=== PATIENT | female | born 1960 | race Caucasian/White ===

== ENCOUNTER → 2023-05-07 08:01 | Outpatient (CLI) | payer OTHER, SELFPAY ==
[2023-05-07 10:14] LABS: Add Manual Diff / Slide Review NO; Basophils Absolute Auto 100 /uL (0-100); Basophils Percent Auto 0.9 % (0-2); Eosinophils Absolute Auto 100 /uL (0-450); Hematocrit 45.4 % (36-46); Hemoglobin 15.2 g/dL (12.0-16.0); Lymphocytes Absolute Auto 1900 /uL (1100-4500); Lymphocytes Percent Auto 31.6 % (25-40); Mean Corpuscular HGB Conc 33.4 % (30-36); Mean Corpuscular Hemoglobin 29.9 PG (26-34); Mean Corpuscular Volume 89.6 fL (80-100); Monocytes Absolute Auto 400 /uL (0-900); Monocytes Percent Auto 7.2 % (3-14); Neutrophils Absolute Auto 3500 /uL (1500-7000); Neutrophils Percent Auto 58.3 % (50-75); Platelet Count 217 X10^3/uL (150-400); Red Blood Cell Count 5.07 X10^6/uL (4.0-5.2); Red Cell Distribution Width 13.8 % (11.6-14.8)
[2023-05-07 10:30] LABS: Hemoglobin A1C% w Est Avg Glu 5.6 % (4.0-6.0)
[2023-05-07 10:40] LABS: Alanine Aminotransferase 155 IU/L (<35); Albumin 4.1 g/dL (3.5-5.0); Albumin Globulin Ratio 1.5 (1.0-2.8); Alkaline Phosphatase 205 U/L (38-126); Aspartate Aminotransferase 57 IU/L (14-36); BUN Creatinine Ratio 25.5 (6-22); Bilirubin Total 0.6 mg/dL (0.2-1.3); Blood Urea Nitrogen 14 mg/dL (7-17); Calcium 9.9 mg/dL (8.4-10.2); Carbon Dioxide 29 mmol/L (22-32); Chloride 101 mmol/L (98-107); Cholesterol 308 mg/dL (140-199); Estimated Glomerular Filt Rate > 60 mL/min (>60); Globulin 2.7 g/dL (1.7-4.1); Glucose 84 mg/dL (80-110); HDL Cholesterol 80 mg/dL (40-60); HEMOLYSIS < 15 (0-50); LDL Cholesterol Calculated 193 mg/dL (<100); Potassium 4.4 mmol/L (3.4-5.1); Sodium 137 mmol/L (137-145); Total Protein 6.8 g/dL (6.3-8.2); Triglycerides 175 mg/dL (35-150)
[2023-05-07 10:52] LABS: Free T3, Triiodothyronine Free 4.98 pg/mL (2.77-5.27); Free T4, Direct Thyroxine 0.95 ng/dL (0.78-2.19)
[2023-05-07 11:05] LABS: Thyroid Stimulating Hormone 1.75 uIU/mL (0.47-4.68)
[2023-05-07 12:11] LABS: Creatinine Urine Random 24.6 mg/dL
[2023-05-07 12:16] LABS: Microalbumin Urine Random < 0.6 mg/dL (0-1.6)
[2023-05-08 10:22] LABS: Fecal Immunochemical Test Negative (Negative)
== END ==
PROVIDERS: PCP Nurse Practitioner; Referring Provider Family Medicine; Visit Provider Family Medicine
DX: I10 Essential (primary) hypertension (principal); F41.9 Anxiety disorder, unspecified; R73.9 Hyperglycemia, unspecified; Z12.11 Encounter for screening for malignant neoplasm of colon
CPT/HCPCS: 36415; 80053; 80061; 82043; 82274; 82570; 83036; 84439; 84443; 84481; 85025

== ENCOUNTER 2024-10-09 16:22 | Emergency (ER) | payer OTHER, SELFPAY ==
[2024-10-09] VITALS (9 sets, daily range): BP systolic 154–190; BP diastolic 77–112; PULSE 73–99; RESP 16–20; TEMP 36.1; O2SAT 95–98; BMI 23.8
--- NOTE | 2024-10-09 16:46 | DI.RAD.S_ITS ---
PROCEDURE: XR CHEST 1V INDICATIONS: chest pain TECHNIQUE: One view of the chest was acquired. COMPARISON: None. FINDINGS: Surgical changes and devices: None. Lungs and pleura: Lungs are clear. No pleural effusions or pneumothorax. Mediastinum: Mediastinal contours appear normal. Heart size is normal. Bones and chest wall: No suspicious bony lesions. Overlying soft tissues appear unremarkable. IMPRESSION: No acute cardiopulmonary abnormality is seen. Dictated by: Ok Perez M.D. on 10/09/2024 at 17:24 Approved by: Ok Perez M.D. on 10/09/2024 at 17:25
--- NOTE | 2024-10-09 16:52 | EKG_ITS ---
[address] [address] Test Date: 2024-10-09 Pat Name: Tanisha Michel Department: Room: Gender: Female Transitional Living Specialist: ANDRE BOSTON : 1960 Requested By: Order Number: [id number] Reading MD: Chu Juarez MD Measurements Intervals [place] Rate: 86 P: 53 [place]: 154 QRS: -8 QRSD: 78 T: 33 QT: 376 QTc: 449 Interpretive Statements Normal sinus rhythm Electronically Signed On 10-09-2024 16:57:34 PDT by Chu Juarez MD
[2024-10-09 17:19] LABS: Prothrombin Time 11.5 SECONDS (9.4-12.5)
[2024-10-09 17:22] LABS: PTT Partial Thromboplastin Tim 33 SECONDS (25.1-36.5)
[2024-10-09 17:24] LABS: Alanine Aminotransferase 22 IU/L (<35); Albumin 4.6 g/dL (3.5-5.0); Albumin Globulin Ratio 1.4 (1.0-2.8); Alkaline Phosphatase 117 U/L (38-126); Aspartate Aminotransferase 28 IU/L (14-36); BUN Creatinine Ratio 23.5 (6-22); Bilirubin Total 0.8 mg/dL (0.2-1.3); Blood Urea Nitrogen 16 mg/dL (7-17); Carbon Dioxide 24 mmol/L (22-32); Chloride 106 mmol/L (98-107); Creatine Kinase 82 U/L (30-135); Estimated Glomerular Filt Rate > 60 mL/min (>60); Globulin 3.2 g/dL (1.7-4.1); Glucose 113 mg/dL (80-110); HEMOLYSIS 32 (0-50); Lipase 139 U/L (23-300); Magnesium 2.4 mg/dL (1.6-2.3); Potassium 3.9 mmol/L (3.4-5.1); Sodium 139 mmol/L (137-145); Total Protein 7.8 g/dL (6.3-8.2)
[2024-10-09 17:33] LABS: Add Manual Diff / Slide Review NO; Basophils Absolute Auto 100 /uL (0-100); Basophils Percent Auto 1.2 % (0-2); Eosinophils Absolute Auto 100 /uL (0-450); Eosinophils Percent Auto 0.6 % (2-4); Hematocrit 46.4 % (36-46); Hemoglobin 15.5 g/dL (12.0-16.0); Lymphocytes Absolute Auto 2500 /uL (1100-4500); Lymphocytes Percent Auto 22.6 % (25-40); Mean Corpuscular HGB Conc 33.4 % (30-36); Mean Corpuscular Hemoglobin 29.5 PG (26-34); Mean Corpuscular Volume 88.2 fL (80-100); Monocytes Absolute Auto 800 /uL (0-900); Monocytes Percent Auto 7.1 % (3-14); Neutrophils Absolute Auto 7500 /uL (1500-7000); Neutrophils Percent Auto 68.5 % (50-75); Platelet Count 249 X10^3/uL (150-400); Red Blood Cell Count 5.26 X10^6/uL (4.0-5.2); Red Cell Distribution Width 13.8 % (11.6-14.8)
[2024-10-09 17:35] LABS: NT-proBNP (BNP-Adult 18+) 21 pg/mL (<125); Troponin I < 0.012 ng/mL (0.01-0.034)
--- NOTE | 2024-10-09 19:12 | EKG_ITS ---
[address] [address] Test Date: 2024-10-09 Pat Name: Tanisha Michel Department: Room: Gender: Female Coat Checker: CYRUS : 1960 Requested By: Order Number: [id number] Reading MD: Chu Juarez MD Measurements Intervals [place] Rate: 90 P: 42 [place]: 160 QRS: -14 QRSD: 78 T: 14 QT: 364 QTc: 445 Interpretive Statements Normal sinus rhythm Electronically Signed On 10-09-2024 20:02:13 PDT by Chu Juarez MD
[2024-10-09 19:38] LABS: Creatine Kinase 66 U/L (30-135)
[2024-10-09 19:50] LABS: Troponin I < 0.012 ng/mL (0.01-0.034)
--- NOTE | 2024-10-09 23:41 | ED_ITS ---
HPI - Chest Pain General Chief Complaint: Chest Pain Stated Complaint: heart palpitations, squeezing sensation Time Seen by Provider: 10/09/24 23:32 History of Present Illness HPI narrative: Patient is a 64-year-old female on hormone replacement therapy progesterone for insomnia presenting today with chest discomfort. She reports that she was sitting in the recliner today she felt some squeezing it is palpitations. No radiation of pain. Now feeling better after being in the emergency department for about 7 hours. She reports that she has not been sleeping for about a week. She was previously put on progesterone to help with insomnia. She says it was working however it suddenly quit working and she has not been sleeping. She is decrease in appetite. Related Data Previous Rx's Medication Instructions Recorded progesterone micronized 100 mg 100 mg PO QPM #90 caps 01/30/24 capsule Allergies Allergy/AdvReac Type Severity Reaction Status Date / Time No Known Drug Allergies Allergy Unverified 01/30/24 10:52 Patient History Medical History Elevated LFTs Insomnia Hyperlipidemia Depression Acne Allergies Anxiety Mumps Chicken pox Anemia (~1986) Ovarian cyst Infertility Heavy menstrual period Endometriosis Abnormal Pap smear of cervix Hypertension (~2016) Surgical History History of hysterectomy for benign disease Anesthesia History of hysterectomy (~2012) Family History Father Hypertension Hyperlipidemia Mother Ovarian cancer Atrial fibrillation Hypertension Hyperlipidemia Anxiety Osteoporosis Rheumatoid arthritis Brother Hyperlipidemia Hypertension Sister Breast cancer Rheumatoid arthritis Family/Other Fatty liver Intestinal disorder Social History Smoking Status: Never smoker Smoking Status: Never smoker Exam Initial Vital Signs Initial Vital Signs: Vital Signs Temperature 97.0 F L 10/09/24 16:47 Pulse Rate 99 H 10/09/24 16:47 Respiratory Rate 18 10/09/24 16:47 Blood Pressure 190/112 H 10/09/24 16:47 Pulse Oximetry 95 10/09/24 16:47 Oxygen Delivery Method Room Air 10/09/24 16:47 GENERAL: Alert well-appearing 64-year-old female HEENT: Head atraumatic,EOMI, pupils reactive, face symmetric, moist mucous membranes CARDIOVASCULAR: Regular rate and rhythm without murmurs, rubs or gallops. RESPIRATORY: Breath sounds equal bilaterally, no wheezes rales or rhonchi. ABDOMEN: Soft, nontender. Normoactive bowel sounds all 4 quadrants. No guarding or rebound. EXTREMITIES: Normal range of motion, no clubbing or edema. Neurovascularly intact NEUROLOGICAL: Alert and oriented x4.Normal gait and speech. Cranial nerves II through XII grossly intact. SKIN: Warm, dry, no laceration, no petechiae, no rashes or lesions. Scores HEART Score Heart Score history: Slightly Suspicious Heart Score EKG: Normal Heart Score Age: 45-64 years old Heart Score risk factors: No known risk factors Heart Score troponin: < or = to normal limit Heart Score Total: 1 Course Orders Ordered: Discontinued Medications Aspirin (Aspirin 81 Mg Chew Tab) 324 mg PO NOW ONE Stop: 10/09/24 16:47 Vital Signs Vital signs: Vital Signs - 8 hr 10/09/24 21:18 10/09/24 21:30 10/09/24 22:00 Pulse Rate 81 86 79 Respiratory Rate 20 16 16 Blood Pressure 169/91 H 161/77 H 158/83 H Pulse Oximetry 98 98 97 Oxygen Delivery Method Room Air Room Air 10/09/24 22:30 10/09/24 22:50 10/09/24 23:00 Pulse Rate 81 80 73 Respiratory Rate 17 16 17 Blood Pressure 155/81 H 154/81 H 155/80 H Pulse Oximetry 97 96 95 Oxygen Delivery Method Room Air 10/09/24 23:30 Pulse Rate 75 Respiratory Rate 16 Blood Pressure 157/83 H Pulse Oximetry 97 Oxygen Delivery Method MDM - Chest Pain Lab Data 10/09/24 16:59 10/09/24 16:59 Labs: Lab Results 10/09/24 10/09/24 Range/Units 16:59 19:18 WBC 11.0 (4.5-11.0) X10^3/uL RBC 5.26 H (4.0-5.2) X10^6/uL Hgb 15.5 (12.0-16.0) g/dL Hct 46.4 H (36-46) % MCV 88.2 (80-100) fL MCH 29.5 (26-34) PG MCHC 33.4 (30-36) % RDW 13.8 (11.6-14.8) % Plt Count 249 (150-400) X10^3/uL Neut % (Auto) 68.5 (50-75) % Lymph % (Auto) 22.6 L (25-40) % Williamson % (Auto) 7.1 (3-14) % Eos % (Auto) 0.6 L (2-4) % Baso % (Auto) 1.2 (0-2) % Neut # (Auto) 7500 H (5320-1686) /uL Lymph # (Auto) 2500 (5632-3479) /uL Williamson # (Auto) 800 (0-900) /uL Eos # (Auto) 100 (0-450) /uL Baso # (Auto) 100 (0-100) /uL PT 11.5 (9.4-12.5) SECONDS INR 1.0 (0.9-1.3) APTT 33 (25.1-36.5) SECONDS Sodium 139 (137-145) mmol/L Potassium 3.9 (3.4-5.1) mmol/L Chloride 106 (98-107) mmol/L Carbon Dioxide 24 (22-32) mmol/L BUN 16 (7-17) mg/dL Creatinine 0.68 (0.52-1.04) mg/dL Estimated GFR > 60 (>60) mL/min BUN/Creatinine Ratio 23.5 H (6-22) Glucose 113 H (80-110) mg/dL Calcium 10.0 (8.4-10.2) mg/dL Magnesium 2.4 H (1.6-2.3) mg/dL Total Bilirubin 0.8 (0.2-1.3) mg/dL AST 28 (14-36) IU/L ALT 22 (<35) IU/L Alkaline Phosphatase 117 (38-126) U/L Total Creatine Kinase 82 66 (30-135) U/L Troponin I < 0.012 < 0.012 (0.01-0.034) ng/mL NT-Pro-B Natriuret Pep 21 (<125) pg/mL Total Protein 7.8 (6.3-8.2) g/dL Albumin 4.6 (3.5-5.0) g/dL Globulin 3.2 (1.7-4.1) g/dL Albumin/Globulin Ratio 1.4 (1.0-2.8) Lipase 139 (23-300) U/L Imaging Data Chest x-ray: Radiologist's Impression: PROCEDURE: XR CHEST 1V INDICATIONS: chest pain TECHNIQUE: One view of the chest was acquired. COMPARISON: None. FINDINGS: Surgical changes and devices: None. Lungs and pleura: Lungs are clear. No pleural effusions or pneumothorax. Mediastinum: Mediastinal contours appear normal. Heart size is normal. Bones and chest wall: No suspicious bony lesions. Overlying soft tissues appear unremarkable. IMPRESSION: No acute cardiopulmonary abnormality is seen. Dictated by: Ok Perez M.D. on 10/09/2024 at 17:24 ECG Data Attestation: I personally reviewed and interpreted this ECG as follows: Prior ECG tracings: available for review Interpretation: EKGs 1. Normal sinus rhythm rate 86 [place] interval 154 QRS [address] changes EKGs 2. Sinus rhythm rate 90 no ischemia MDM Narrative Medical decision making narrative: Patient 64-year-old female currently on HRT presenting to day with insomnia and chest discomfort. Chest pain happened at rest she was having really more palpitations not dizzy or lightheaded no evidence syncope. She did have some sort of squeezing episode as well. She has no known coronary artery disease. She has no shortness of breath. Heart score is 1 Blood work has been reviewed No leukocytosis no anemia Electrolytes stable Creatinine within normal limits Troponin negative x2 Chest x-ray reviewed negative At this time patient really suffering from insomnia. Reports it progesterone was previously helping her. I recommend that she go up to 200 mg over progesterone to see if it helps her sleep. She has an appointment with primary care next week. Also consider estrogen patch for full HRT treatment. She was low risk heart score do not suspect ACS at this time. I suspect more palpitations. Discharge Plan Departure Patient Disposition: Home Clinical Impression: Atypical chest pain Instructions: DI for Atypical Chest Pain Activity Restrictions/Additional Instructions: *You have been diagnosed with atypical chest pain *What to do: At this time I think some of your symptoms are related to insomnia. Please discuss with provider if you should need further cardiac workup. Workup in the emergency department overall reassuring *Continue to take medications as directed May increase progesterone to 200 mg at night May add melatonin 5 mg as needed *Follow up with your primary care provider in 2-3 days or call [phone] *Return to ER if you should have increasing chest pain palpitations dizziness lightheadedness or any new, worsening or concerning symptoms Prescriptions: No Action progesterone micronized 100 mg capsule 100 mg PO QPM Qty: 90 3RF Rx Instructions: Take 1 cap at bedtime daily for insomnia Referrals: Lisa Vidal ARNP [Primary Care Provider] - Stand Alone Forms: Patient Portal/API/Survey
== END 2024-10-10 00:03 | disposition home or self-care (01) ==
PROVIDERS: Emergency Medicine; Emergency Provider Emergency Medicine; PCP Nurse Practitioner
DX: R07.89 Other chest pain (principal); R00.2 Palpitations
CPT/HCPCS: 36415; 71045; 80053; 82550; 83690; 83735; 83880; 84484; 85025; 85610; 85730; 93005; 93010; 99283; 99284

== ENCOUNTER 2024-10-13 09:08 | Emergency (ER) | payer OTHER, SELFPAY ==
[2024-10-13 09:20] VITALS: BP 171/86; PULSE 96; RESP 18; TEMP 36.4; O2SAT 96; BMI 23.8
--- NOTE | 2024-10-13 09:34 | PC.NURSE ---
Pt calm and cooperative with cares. Denies pain. Discussed plan of care, understands.
--- NOTE | 2024-10-13 11:08 | ED.PSYCH ---
HPI - Psych General Chief Complaint: Psychiatric Symptoms Stated Complaint: Can't sleep , fearful Time Seen by Provider: 10/13/24 09:46 Source: patient, RN notes reviewed and old records reviewed Mode of arrival: Ambulatory Limitations: no limitations History of Present Illness HPI Narrative: 64-year-old female presents with concern about insomnia for several weeks. Patient has a history of chronic insomnia states a year ago had an episode of psychosis with a suicide attempt after an extended period of severe insomnia. Patient is starting to being having issues again is very concerned that she might end up in the same situation. States she does not feel particularly anxious, states she was not have any thoughts of harming herself no hallucinations she does not feel like she was developing any psychosis at this time but wants to be preemptive and preventing that. She was seen here last week they increased her progesterone as she found that helpful in the past. Progesterone only current medication. She states she was at [facility] was hospitalized inpatient psych for over a week was discharged home on multiple medications but does not recall all of them. She was tried trazodone in the past without much help, she states she had Ambien but seemed to worsen hallucinations when she was hospitalized. Related Data Previous Rx's Medication Instructions Recorded progesterone micronized 100 mg 100 mg PO QPM #90 caps 10/10/24 capsule lorazepam 1 mg tablet (Ativan) 1 mg PO BEDTIME PRN insomnia #5 10/13/24 tabs Allergies Allergy/AdvReac Type Severity Reaction Status Date / Time No Known Drug Allergies Allergy Unverified 01/30/24 10:52 Review of Systems Review of Systems ROS Unobtainable: All systems reviewed & are unremarkable except as noted in HPI and below Patient History Medical History Elevated LFTs Insomnia Hyperlipidemia Depression Acne Allergies Anxiety Mumps Chicken pox Anemia (~1986) Ovarian cyst Infertility Heavy menstrual period Endometriosis Abnormal Pap smear of cervix Hypertension (~2016) Surgical History History of hysterectomy for benign disease Anesthesia History of hysterectomy (~2012) Family History Father Hypertension Hyperlipidemia Mother Ovarian cancer Atrial fibrillation Hypertension Hyperlipidemia Anxiety Osteoporosis Rheumatoid arthritis Brother Hyperlipidemia Hypertension Sister Breast cancer Rheumatoid arthritis Family/Other Fatty liver Intestinal disorder Social History Smoking Status: Never smoker Smoking Status: Never smoker Exam Narrative Exam Narrative: GENERAL: Alert and oriented x three, mild distress HEENT: Head normocephalic, atraumatic, EOMI, pupils reactive, face symmetric, moist mucous membranes NECK: Supple, full range of motion CARDIOVASCULAR: Regular rate and rhythm without murmurs, rubs or gallops. RESPIRATORY: Breath sounds equal bilaterally, no wheezes rales or rhonchi. ABDOMEN: Soft, nontender. Normoactive bowel sounds all 4 quadrants. No guarding or rebound, rigidity, no mass : No CVA tenderness EXTREMITIES: Normal range of motion, no clubbing or edema. Neurovascularly intact NEUROLOGICAL: Cranial nerves II through XII grossly intact. Moving all extremities SKIN: Warm, dry, no petechiae, no rashes or lesions. PSYCH: insomnia, no hallucinations, no SI/HI, denies any thoughts of harming herself or others. Initial Vital Signs Initial Vital Signs: Vital Signs Temperature 97.6 F 10/13/24 09:20 Pulse Rate 96 H 10/13/24 09:20 Respiratory Rate 18 10/13/24 09:20 Blood Pressure 171/86 H 10/13/24 09:20 Pulse Oximetry 96 10/13/24 09:20 Oxygen Delivery Method Room Air 10/13/24 09:20 Course Orders Ordered: ED Orders 10/13/24 10:45 Urine Drug Screen, Rapid Stat Vital Signs Vital signs: Vital Signs - 8 hr 10/13/24 11:47 Temperature 98.5 F Pulse Rate 66 Respiratory Rate 16 Blood Pressure 135/78 Pulse Oximetry 99 Oxygen Delivery Method Room Air MDM - Psych Lab Data Labs: Lab Results 10/13/24 Range/Units 10:45 U Opiates 300ng/mL cut Negative (Negative) Ur Oxycodone Screen Negative (Negative) Urine Methadone Screen Negative (Negative) Ur Barbiturates Screen Negative (Negative) U Tricyclic Antidepress Negative (Negative) Ur Phencyclidine Scrn Negative (Negative) Ur Amphetamines Screen Negative (Negative) U Methamphetamines Scrn Negative (Negative) Ur MDMA Scrn (Ecstasy) Negative (Negative) U Benzodiazepines Scrn Negative (Negative) Urine Cocaine Screen Negative (Negative) U Marijuana (THC) Screen Negative (Negative) Urine pH Normal (Normal) Urine Specific [place] Normal (Normal) Ur Creatinine Normal (Normal) Urine Dip Bedside Urine Glucose Negative Bedside Urine Bilirubin - Negative Bedside Urine Ketone - Negative Urine Specific [place] 1.010 Bedside Urine Occult Blood - Negative Bedside Urine pH 7.5 Bedside Urine Protein - Negative Bedside Urine Urobilinogen 1+ 2mg Bedside Urine Nitrite - Negative Bedside Urine Leukocytes - Negative Esterase MDM Narrative Medical decision making narrative: Point of care urine shows no infection. Urine drug screen is negative. Discussed with patient about obtaining labs vitals are appropriate she was follow up this Sunday with primary care they will likely do some additional testing beyond what is available here feel it is appropriate for her to keep that appointment and she defers lab draw. We will give short course of benzodiazepine to see if this is helpful with sleep. Discussed she was tried trazodone which has not been helpful in the past sounds like she had Ambien at 1 point during her hospitalization but may have exacerbated her hallucinations. Sounds like she was maybe they had Valium and tolerated okay. She was unsure of the names of her other medications that she took while hospitalized asked if they can compile a list or find any old bottles to share with her physician as potentially starting 1 of these maybe helpful. We reviewed some names and patient was not familiar with them. Discussed return precautions. Patient defers meeting with the PAYMENT COLLECTOR states she was really trying preempt any potential for psychiatric issues from her insomnia. Has been also states she seems to be doing well they are both just concerned because of her episode last year. Discharge Plan Departure Patient Disposition: Home Clinical Impression: Insomnia Instructions: DI for Insomnia Activity Restrictions/Additional Instructions: I hope your appointment goes well with July on Sunday. I would recommend if you can find year old medications names or bottles to take those with you to your appointment and discuss if it would be helpful to restart any of these. You can return to your normal progesterone dose if you find the increased dosage isn't helpful. You can take benzodiazepine 1 tablet prior to sleep. This medication can make you sleepy do not drive, perform hazardous activities or make any major decisions while taking it. Prescription was sent to [facility] in [place]. Please return if you have any thoughts of harming yourself or others, hallucinations, if you are having rapidly worsening symptoms or any other new or concerning changes. Prescriptions: New lorazepam [Ativan] 1 mg tablet 1 mg PO BEDTIME PRN (Reason: insomnia) Qty: 5 0RF No Action progesterone micronized 100 mg capsule 100 mg PO QPM Qty: 90 0RF Rx Instructions: Take 1 cap at bedtime daily for insomnia Referrals: Lisa Vidal ARNP [Primary Care Provider] - July Bourne FNP-JOSUE [Advanced Physical Therapy Director] - Stand Alone Forms: Patient Portal/API/Survey
[2024-10-13 11:10] LABS: UR Morphine/Opiate cutoff 300 Negative (Negative); Ur Creatinine Normal (Normal); Ur Specific Gravity Normal (Normal); Urine Cocaine Negative (Negative); Urine Tetrahydrocannabinol Negative (Negative); Urine pH Normal (Normal)
[2024-10-13 11:11] LABS: Urine Amphetamines Negative (Negative); Urine Barbiturates Negative (Negative); Urine Benzodiazepines Negative (Negative); Urine MDMA Negative (Negative); Urine Methadone Negative (Negative); Urine Methamphetamines Negative (Negative); Urine Oxycodone Negative (Negative); Urine Phencyclidine Negative (Negative); Urine Tricyclic Antidepressant Negative (Negative)
[2024-10-13 11:47] VITALS: BP 135/78; PULSE 66; RESP 16; TEMP 36.9; O2SAT 99
== END 2024-10-13 11:49 | disposition home or self-care (01) ==
PROVIDERS: Emergency Provider Emergency Medicine; PCP Nurse Practitioner
DX: G47.00 Insomnia, unspecified (principal)
CPT/HCPCS: 80305; 81003; 99282; 99283

== ENCOUNTER → 2024-10-15 15:27 | Outpatient (CLI) | payer OTHER, SELFPAY ==
[2024-10-15 16:49] LABS: Cholesterol 265 mg/dL (140-199); HDL Cholesterol 57 mg/dL (40-60); LDL Cholesterol Calculated 170 mg/dL (<100); Triglycerides 188 mg/dL (35-150)
[2024-10-15 17:23] LABS: Ferritin 52 ng/mL (11-264)
[2024-10-15 17:24] LABS: HEMOLYSIS < 15 (0-50); Iron 61 ug/dL (37-170)
[2024-10-15 17:35] LABS: Percent Iron Saturation 18 % (15-50); Total Iron Binding Capacity 338 ug/dL (265-497); Transferrin 287 mg/dL (206-381)
[2024-10-15 17:57] LABS: TSH w/ Reflex to FT4 1.15 uIU/mL (0.47-4.68)
== END ==
PROVIDERS: PCP Nurse Practitioner Family; Referring Provider Nurse Practitioner Family; Visit Provider Nurse Practitioner Family
DX: G47.00 Insomnia, unspecified (principal); F41.9 Anxiety disorder, unspecified
CPT/HCPCS: 36415; 80061; 82728; 83540; 83550; 84443

== ENCOUNTER → 2024-10-30 09:20 | Outpatient (CLI) | payer OTHER, SELFPAY ==
[2024-10-30 10:47] LABS: Vitamin D 25 Hydroxy (D3) 51.7 ng/mL (30.0-100.0)
[2024-10-30 10:49] LABS: Free T3, Triiodothyronine Free 5.23 pg/mL (2.77-5.27); Free T4, Direct Thyroxine 1.26 ng/dL (0.78-2.19)
[2024-10-30 11:03] LABS: TSH w/ Reflex to FT4 1.38 uIU/mL (0.47-4.68)
[2024-10-31 07:11] LABS: Thyroid Peroxidase Antibodies 12 IU/mL (0-34)
[2024-10-31 16:40] LABS: Anti Thyroglobulin Antibody <1.0 IU/mL (0.0-0.9)
== END ==
PROVIDERS: PCP Nurse Practitioner Family; Referring Provider Nurse Practitioner Family; Visit Provider Nurse Practitioner Family
DX: G47.00 Insomnia, unspecified (principal)
CPT/HCPCS: 36415; 82306; 84439; 84443; 84481; 86376; 86800